=== PATIENT | female | born 2000 | race Two or more races ===

== ENCOUNTER → 2020-04-28 | Outpatient (CLI) | payer OTHER ==
[~2020-04-28] MED LIST: Birth Control PO
[2020-04-28 09:40] LABS: BASOPHILS # (AUTO) 0.02 x10^3/uL (0-0.3); BASOPHILS % (AUTO) 0 % (0-1); EOSINOPHILS # (AUTO) 0.01 x10^3/uL (0-0.8); EOSINOPHILS % (AUTO) 0 % (1-7); LYMPHOCYTES % (AUTO) 27 % (22-44); MD NO; MEAN CORPUSCULAR HEMOGLOBIN 30.2 pg (27.0-34.8); MEAN CORPUSCULAR HGB CONC 32.9 g/dL (32.4-35.8); MEAN CORPUSCULAR VOLUME 91.6 fL (80-100); MEAN PLATELET VOLUME 7.5 fL (7.4-10.4); MONOCYTES # (AUTO) 0.46 x10^3/uL (0-1.4); MONOCYTES % (AUTO) 10 % (2-9); NEUTROPHILS # (AUTO) 3.11 x10^3/uL (1.8-8.0); NEUTROPHILS % (AUTO) 63 % (42-75); PLATELET COUNT 329 x10^3/uL (130-400); RED BLOOD COUNT 4.51 x10^6/uL (3.82-5.3); RED CELL DISTRIBUTION WIDTH 12.4 % (9.6-15.2)
[2020-04-28 10:32] LABS: MICROSCOPIC INDICATED
== END | disposition home or self-care (01) ==
LOC: STAR 08:49
PROVIDERS: ATTEND Obstetrics & Gynecology
DX: Z01.818 Encounter for other preprocedural examination (principal); Z11.59 Encounter for screening for other viral diseases; N80.9 Endometriosis, unspecified; R10.2 Pelvic and perineal pain
CPT/HCPCS: 36415; 81001; 84702; 85025; 87086; 87635

== ENCOUNTER 2020-05-02 05:26 | Day surgery (SDC) | payer OTHER ==
[~2020-05-02] VITALS: Ht 170.2 cm; Wt 72.7 kg
[2020-05-02] MEDS ORDERED: LACTATED RINGERS 1,000 ML IV SCH (06:41)
[2020-05-02] MEDS ORDERED: BUPIVACAINE/PF 0.25% ONE (06:45)
[2020-05-02] MEDS ORDERED: LIDOCAINE-MPF 2%, 2ML ONE (06:57)
[2020-05-02] MEDS ORDERED: ACETAMINOPHEN 500 MG TABLET PO ONE (07:00)
[2020-05-02] MEDS ORDERED: GABAPENTIN 300 MG CAPSULE PO ONE (07:00)
[2020-05-02] MEDS ORDERED: CHLORHEXIDINE 15 ML UDC MM ONE (07:00)
[2020-05-02 07:04] LABS: HCG UR SG 1.017 (1.003-1.030)
[2020-05-02] MEDS ORDERED: FENTANYL PF 250 MCG/5ML ONE (07:17)
[2020-05-02] MEDS ORDERED: MIDAZOLAM 1 MG/ML, 2ML ONE (07:17)
[2020-05-02] MEDS ORDERED: PROPOFOL 50 ML ONE (07:29)
[2020-05-02] MEDS ORDERED: LIDOCAINE-MPF 2% ,5ML ONE (07:44)
[2020-05-02] MEDS ORDERED: GLYCOPYRROLATE 0.2MG/1ML, 5ML ONE (07:44)
[2020-05-02] MEDS ORDERED: CEFAZOLIN 1,000 MG ONE (07:44)
[2020-05-02] MEDS ORDERED: SUCCINYLCHOLINE 20 MG/ML, 10ML ONE (07:44)
[2020-05-02] MEDS ORDERED: ONDANSETRON 2MG/ML, 2ML ONE (07:44)
[2020-05-02] MEDS ORDERED: ROCURONIUM 10MG/ML,5ML ONE (07:44)
[2020-05-02] MEDS ORDERED: KETOROLAC 30 MG/1 ML ONE (07:44)
[2020-05-02] MEDS ORDERED: NEOSTIGMINE 1 MG/ML, 10ML ONE (07:44)
[2020-05-02] MEDS ORDERED: DEXAMETHASONE 4 MG/ML, 1ML ONE (07:44)
[2020-05-02] MEDS ORDERED: PROPOFOL 10 MG/ML, 20ML ONE (07:44)
[2020-05-02] MEDS ORDERED: OXYcodone 5 MG/5 ML ORAL.SOL UDC PO PRN (08:00)
[2020-05-02] MEDS ORDERED: LORazepam 2 MG/ML, 1ML IVPush PRN (08:00)
[2020-05-02] MEDS ORDERED: FENTANYL PF 100 MCG/2ML IV PRN (08:00)
[2020-05-02] MEDS ORDERED: ONDANSETRON 2MG/ML, 2ML IVPush PRN (08:00)
[2020-05-02] MEDS ORDERED: ACETAMINOPHEN 325 MG TABLET PO PRN (08:00)
[2020-05-02] MEDS ORDERED: PROMETHAZINE 25 MG/ML, 1ML IVPush PRN (08:00)
[2020-05-02] MEDS ORDERED: HYDROmorphone 1 MG/ML, 1ML INJ IVPush PRN (08:00)
[2020-05-02] MEDS ORDERED: DIAZEPAM 5 MG/ML, 2ML IVPush PRN (08:00)
[2020-05-02] MEDS ORDERED: MEPERIDINE/PF 25MG/0.5ML IVPush PRN (08:00)
[2020-05-02] MEDS ORDERED: PROMETHAZINE 25 MG SUPP PR PRN (08:00)
[2020-05-02] MEDS ORDERED: SUGAMMADEX 200 MG/2 ML IVPush ONE (08:07)
[2020-05-02] MEDS ORDERED: FENTANYL PF 100 MCG/2ML ONE (08:50)
[2020-05-02] MEDS ORDERED: ACETAMINOPHEN 650 MG/20.3 ML UDC ONE (08:58)
== END 2020-05-02 10:10 | disposition home or self-care (01) ==
LOC: OUT 05:26
PROVIDERS: ATTEND Obstetrics & Gynecology
DX: N94.19 Other specified dyspareunia (principal); R10.2 Pelvic and perineal pain; N80.3 Endometriosis of pelvic peritoneum; Z82.49 Family history of ischemic heart disease and other diseases of the circulatory system; Z83.3 Family history of diabetes mellitus; Z79.899 Other long term (current) drug therapy; Z79.3 Long term (current) use of hormonal contraceptives
CPT/HCPCS: 49321; 81025; 88305; J0690; J1100; J1885; J2250; J2405; J2704; J2710; J3010; J3490; J7120; J0330